=== PATIENT | male | born 1975 | race Caucasian/White ===

== ENCOUNTER 2016-06-10 10:58 | Emergency (ER) | payer OTHER ==
[2016-06-10 12:04] VITALS: BP 114/75
--- NOTE | 2016-06-10 12:47 | UC ---
UC General HPI - HPI Summary HPI Summary: [place] dizzyness, chest and sinus congestion. fatique, chills for 4 days - History of Current Complaint Chief Complaint: UCRespiratory Stated Complaint: COLD SYMPTOMS Time Seen by Provider: 06/10/16 12:36 Hx Obtained From: Patient Onset/Duration: Sudden Onset, Lasting Days Timing: Constant Onset Severity: Severe Current Severity: Severe Pain Intensity: 8 Associated Signs & Symptoms: Positive: Cough, Dizziness, Headache, SOB, Wheezing - Allergy/Home Medications Allergies/Adverse Reactions: Allergies Allergy/AdvReac Type Severity Reaction Status Date / Time No Known Allergies Allergy Verified 06/10/16 11:56 Home Medications: Home Medications Multiple Vitamins W/ Minerals [Airborne] PRN 06/10/16 [History] Eatvsftoshuuf-[id number]-[id number] [Theraflu Cold & Cough] 1 arsh PO PRN 06/10/16 [ History] PMH/Surg Hx/FS Hx/Imm Hx Previously Healthy: Yes Endocrine History Of: Denies: Diabetes Cardiovascular History Of: Denies: Cardiac Disorders Respiratory History Of: Denies: Asthma - Surgical History Surgical History: Yes Surgery Procedure, Year, and Place: R KNEE ARTHROSCOPY. RECONSTRUCTION R KNEE. hernia repair - Family History Known Family History: Positive: Hypertension Negative: Cardiac Disease, Diabetes - Social History Alcohol Use: Rare Substance Use Type: None Smoking Status (MU): Never Smoked Tobacco Type: Smokeless Tobacco Amount Used/How Often: ONE CAN PER WEEK Length of Time of Smoking/Using Tobacco: 20 yrs - Immunization History Most Recent Influenza Vaccination: not this season Review of Systems Constitutional: Chills, Fatigue Skin: Negative Eyes: Negative ENT: Sore Throat, Ear Ache, Nasal Discharge Respiratory: Shortness Of Breath, Cough Cardiovascular: Negative Gastrointestinal: Negative Genitourinary: Negative Motor: Negative Neurovascular: Negative Musculoskeletal: Myalgia Neurological: Headache Psychological: Negative All Other Systems Reviewed And Are Negative: Yes Physical Exam Triage Information Reviewed: Yes Appearance: Well-Nourished, Ill-Appearing, Pain Distress Vital Signs: Initial Vital Signs Temp 98 F 06/10/16 11:59 Pulse 70 06/10/16 11:59 Resp 20 06/10/16 11:59 BP 114/75 06/10/16 11:59 Pulse Ox 98 06/10/16 11:59 Vital Signs Reviewed: Yes Eye Exam: Normal Eyes: Positive: Conjunctiva Clear ENT: Positive: Pharyngeal erythema, Nasal congestion, Nasal drainage, TM bulging , Muffled/hoarse voice Dental Exam: Normal Neck exam: Normal Neck: Positive: Supple, Nontender, No Lymphadenopathy Respiratory Exam: Normal Respiratory: Positive: Chest non-tender, Lungs clear, Normal breath sounds Cardiovascular Exam: Normal Cardiovascular: Positive: RRR, No Murmur, Pulses Normal Abdominal Exam: Normal Abdomen Description: Positive: Nontender, No Organomegaly, Soft Bowel Sounds: Positive: Present Musculoskeletal Exam: Normal Neurological Exam: Normal Psychological Exam: Normal Skin Exam: Normal Course/Dx - Course Course Of Treatment: history obtained, exam performed, meds reviewed. rapid flu obtained. - Differential Dx - Multi-Symptom Provider Diagnoses: sinusitis Discharge - Discharge Plan Condition: Stable Disposition: HOME Prescriptions: Amoxicillin/Clavulanate TAB* [Augmentin TAB 875*] 875 mg PO BID #20 tab predniSONE TAB* [Deltasone TAB*] 40 mg PO DAILY #10 tab Patient Education Materials: Sinusitis (GEN) Forms: *Work Release Referrals: Drew Choi MD [Primary Care Provider] - Additional Instructions: take the medication as prescribed. Increase your fluid intake Get plenty of rest ibuprofen and tylenol alone for pain and fever.
== END 2016-06-10 13:25 | disposition home or self-care (01) ==
LOC: UCCORT 10:58
DX: J32.9 Chronic sinusitis, unspecified (principal); F17.220 Nicotine dependence, chewing tobacco, uncomplicated
CPT/HCPCS: 87502; 99212; G0463

== ENCOUNTER 2016-10-28 10:19 | Emergency (ER) | payer OTHER ==
[2016-10-28 10:40] VITALS: BP 118/71
--- NOTE | 2016-10-28 10:57 | UC ---
Knee Pain HPI - HPI Summary HPI Summary: Pt presents with c/o of "chronic" right knee pain and "weakness'. Pt reports that he has had multiple injuries and surgical repairs ot right knee. Pt states that the right knee "feels painful daily and that it may give out at any time" - History of Current Complaint Chief Complaint: UCLowerExtremity Stated Complaint: RIGHT KNEE INJURY Time Seen by Provider: 10/28/16 10:32 Hx Obtained From: Patient Onset/Duration: Gradual Onset, Lasting Weeks Severity Initially: Mild Severity Currently: Mild Character: Dull, Aching Aggravating Factor(s): Movement, Weight Bearing, Prolonged Standing, Stairs Alleviating Factor(s): Rest, Position Associated Signs And Symptoms: Positive: Numbness - secondary form previous surgery Able to Bear Weight: Yes - Risk Factors Gout Risk Factor: Age ^ 40, Male - Allergies/Home Medications Allergies/Adverse Reactions: Allergies Allergy/AdvReac Type Severity Reaction Status Date / Time No Known Allergies Allergy Verified 10/28/16 10:30 PMH/Surg Hx/FS Hx/Imm Hx Previously Healthy: Yes - Surgical History Surgical History: Yes Surgery Procedure, Year, and Place: R KNEE ARTHROSCOPY. RECONSTRUCTION R KNEE. hernia repair - Family History Known Family History: Positive: Hypertension Negative: Cardiac Disease, Diabetes - Social History Alcohol Use: Rare Substance Use Type: None Smoking Status (MU): Current Some Day Smoker Type: Smokeless Tobacco Amount Used/How Often: ONE CAN PER WEEK Length of Time of Smoking/Using Tobacco: 20 yrs - Immunization History Most Recent Influenza Vaccination: not this season Review of Systems Constitutional: Negative Skin: Negative Eyes: Negative ENT: Negative Respiratory: Negative Cardiovascular: Negative Gastrointestinal: Negative Genitourinary: Negative Motor: Negative Neurovascular: Negative Musculoskeletal: Arthralgia Neurological: Negative Psychological: Negative All Other Systems Reviewed And Are Negative: Yes Physical Exam Triage Information Reviewed: Yes Appearance: Well-Appearing Vital Signs: Initial Vital Signs Temp 98 F 10/28/16 10:24 Pulse 64 10/28/16 10:24 Resp 16 10/28/16 10:24 BP 118/71 10/28/16 10:24 Pulse Ox 99 10/28/16 10:24 Eye Exam: Normal Neck exam: Normal Respiratory Exam: Normal Cardiovascular Exam: Normal Musculoskeletal Exam: Other Musculoskeletal: Positive: ROM Limited @, Other: - c/o pain with drawer and vlagus/varus test. Neurological Exam: Normal Psychological Exam: Normal Skin Exam: Normal Knee Pain Course/Dx - Differential Dx/Diagnosis Differential Diagnosis/HQI/PQRI: Internal Derangement Of Knee, Sprain, Strain, Tendonitis Provider Diagnoses: right knee pain Discharge - Discharge Plan Condition: Stable Disposition: HOME Patient Education Materials: Knee Pain (ED) Referrals: Drew Choi MD [Primary Care Provider] - Rosas Blue MD [Medical Doctor] - 1 Day (Appointment at 11 am.) Additional Instructions: Please follow up with Dr. Blue tomorrow, 10/29/16 at 11 am. If unable to make this appointment please reschedule at your convenience.
== END 2016-10-28 11:13 | disposition home or self-care (01) ==
LOC: UCCORT 10:19
DX: M25.561 Pain in right knee (principal); F17.220 Nicotine dependence, chewing tobacco, uncomplicated
CPT/HCPCS: 99211; G0463

== ENCOUNTER 2017-03-19 16:10 | Emergency (ER) | payer OTHER ==
[2017-03-19 16:18] VITALS: BP 114/75
--- NOTE | 2017-03-19 16:40 | UC ---
Skin Complaint HPI - HPI Summary HPI Summary: 42 yo male with tick bite noted this PM On a mx of 4 hours removed with forceps mild pain - History of Current Complaint Chief Complaint: UCSkin Time Seen by Provider: 03/19/17 16:22 Stated Complaint: TICK Hx Obtained From: Patient Onset/Duration: Sudden Onset Timing: Constant Onset Severity: Mild Current Severity: Mild Pain Intensity: 1 Pain Scale Used: 0-10 Numeric Location: Other - right neck Aggravating Factor(s): Nothing Alleviating Factor(s): Nothing Associated Signs & Symptoms: Positive: Negative Related History: Insect Bite/Sting - Allergy/Home Medications Allergies/Adverse Reactions: Allergies Allergy/AdvReac Type Severity Reaction Status Date / Time No Known Allergies Allergy Verified 03/19/17 16:18 Review of Systems Constitutional: Negative Skin: Negative Eyes: Negative ENT: Negative Respiratory: Negative Cardiovascular: Negative Gastrointestinal: Negative Genitourinary: Negative Motor: Negative Neurovascular: Negative Musculoskeletal: Negative Neurological: Negative Psychological: Negative Is Patient Immunocompromised?: No All Other Systems Reviewed And Are Negative: Yes PMH/Surg Hx/FS Hx/Imm Hx Previously Healthy: Yes - Surgical History Surgical History: Yes Surgery Procedure, Year, and Place: RT KNEE X 2,[facility]ERN[facility] - Family History Known Family History: Positive: Hypertension Negative: Cardiac Disease, Diabetes - Social History Alcohol Use: Rare Substance Use Type: None Smoking Status (MU): Never Smoked Tobacco Type: Smokeless Tobacco Amount Used/How Often: ONE CAN PER WEEK Length of Time of Smoking/Using Tobacco: 20 yrs - Immunization History Most Recent Influenza Vaccination: not this season Physical Exam Triage Information Reviewed: Yes Appearance: Well-Appearing, No Pain Distress, Well-Nourished Vital Signs: Initial Vital Signs Temp 97.6 F 03/19/17 16:14 Pulse 71 03/19/17 16:14 Resp 16 03/19/17 16:14 BP 114/75 03/19/17 16:14 Pulse Ox 97 03/19/17 16:14 Vital Signs Reviewed: Yes Eyes: Positive: Conjunctiva Clear ENT: Positive: Hearing grossly normal, TMs normal. Negative: Nasal congestion, Nasal drainage, Trismus, Muffled voice, Hoarse voice Neck: Positive: Supple, Nontender, No Lymphadenopathy Respiratory: Positive: Lungs clear, Normal breath sounds, No respiratory distress, No accessory muscle use Cardiovascular: Positive: RRR Musculoskeletal: Positive: ROM Intact, No Edema Neurological Exam: Normal Neurological: Positive: Alert Psychological Exam: Normal Skin Exam: Normal Course/Dx - Course Course Of Treatment: tick was brought in and is not engorged - Diagnoses Provider Diagnoses: tick bite Discharge - Discharge Plan Condition: Stable Disposition: HOME Patient Education Materials: Tick Bite (ED) Referrals: Drew Choi MD [Primary Care Provider] - If Needed
== END 2017-03-19 16:38 | disposition home or self-care (01) ==
LOC: UCCORT 16:10
DX: S10.96XA Insect bite of unspecified part of neck, initial encounter (principal); W57.XXXA Bitten or stung by nonvenomous insect and other nonvenomous arthropods, initial encounter; Y93.9 Activity, unspecified; Y92.9 Unspecified place or not applicable; F17.220 Nicotine dependence, chewing tobacco, uncomplicated
CPT/HCPCS: 99211; G0463

== ENCOUNTER 2017-10-09 08:54 | Emergency (ER) | payer OTHER ==
[2017-10-09 09:09] VITALS: BP 122/79
--- NOTE | 2017-10-09 09:54 | UC ---
Knee Pain HPI - HPI Summary HPI Summary: The patient is a 42-year-old male who yesterday developed severe right knee pain after his knee buckled . He has had surgeries on his right ACL. He is unable to fully extend his right knee. He is using and a hinged right knee immobilizer. 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 He states he will follow-up with his [place] physician Dr. Choi. - History of Current Complaint Chief Complaint: UCLowerExtremity Stated Complaint: RIGHT KNEE COMPLAINT Time Seen by Provider: 10/09/17 09:32 Hx Obtained From: Patient Onset/Duration: Sudden Onset, Lasting Hours Severity Initially: Moderate Severity Currently: Mild Pain Intensity: 4 Pain Scale Used: 0-10 Numeric Aggravating Factor(s): Movement, Weight Bearing, Prolonged Standing Alleviating Factor(s): Rest Able to Bear Weight: Yes Related History: Similar Episode/Dx as - hx torn ACL - Allergies/Home Medications Allergies/Adverse Reactions: Allergies Allergy/AdvReac Type Severity Reaction Status Date / Time No Known Allergies Allergy Verified 10/09/17 09:03 PMH/Surg Hx/FS Hx/Imm Hx Previously Healthy: Yes - Surgical History Surgical History: Yes Surgery Procedure, Year, and Place: RT KNEE X 2,[facility]ERNIA - Family History Known Family History: Positive: Hypertension Negative: Cardiac Disease, Diabetes - Social History Alcohol Use: Occasionally Substance Use Type: None Smoking Status (MU): Smoker, Current Status Unknown Type: Smokeless Tobacco Amount Used/How Often: ONE CAN PER WEEK Length of Time of Smoking/Using Tobacco: 20 yrs - Immunization History Most Recent Influenza Vaccination: not this season Review of Systems Constitutional: Negative Skin: Negative Eyes: Negative ENT: Negative Respiratory: Negative Cardiovascular: Negative Gastrointestinal: Negative Genitourinary: Negative Motor: Negative Neurovascular: Negative Musculoskeletal: Arthralgia Neurological: Negative Psychological: Negative Is Patient Immunocompromised?: No All Other Systems Reviewed And Are Negative: Yes Physical Exam Triage Information Reviewed: Yes Appearance: Well-Appearing, No Pain Distress, Well-Nourished Vital Signs: Initial Vital Signs Temp 98.3 F 10/09/17 09:04 Pulse 78 10/09/17 09:04 Resp 14 10/09/17 09:04 BP 122/79 10/09/17 09:04 Pulse Ox 98 10/09/17 09:04 Vital Signs Reviewed: Yes Eyes: Positive: Conjunctiva Clear ENT: Positive: Hearing grossly normal. Negative: Nasal congestion, Nasal drainage, Trismus, Muffled voice, Hoarse voice Neck: Positive: Supple, Nontender Respiratory: Positive: Lungs clear, No respiratory distress Cardiovascular Exam: Normal Cardiovascular: Positive: RRR, No Murmur Musculoskeletal: Positive: ROM Limited @ - right knee, unable to fully extend/ tender medial joint line Neurological: Positive: Alert Psychological Exam: Normal Skin Exam: Normal Knee Pain Course/Dx - Differential Dx/Diagnosis Provider Diagnoses: right knee injury. query right medial meniscus tear Discharge - Sign-Out/Discharge Documenting (check all that apply): Discharge/Admit/Transfer - Discharge Plan Condition: Stable Disposition: HOME Patient Education Materials: Knee Pain (ED) Forms: *Work Release Referrals: Drew Choi MD [Primary Care Provider] - As Soon As Possible Additional Instructions: I may concerned you may have a torn medial meniscus wear your hinged knee brace crutches ice twice daily - Billing Disposition and Condition Condition: STABLE Disposition: Home
== END 2017-10-09 09:54 | disposition home or self-care (01) ==
LOC: UCCORT 08:54
DX: S89.91XA Unspecified injury of right lower leg, initial encounter (principal); X58.XXXA Exposure to other specified factors, initial encounter; Y93.9 Activity, unspecified; Y92.9 Unspecified place or not applicable; Y99.1 Military activity; F17.220 Nicotine dependence, chewing tobacco, uncomplicated
CPT/HCPCS: 99212; G0463

== ENCOUNTER 2018-10-11 10:52 | Emergency (ER) | payer OTHER | END 2018-10-11 11:34 | disposition left against medical advice (07) | LOC: UCCORT 10:52 | DX: M25.561 Pain in right knee (principal); Z53.21 Procedure and treatment not carried out due to patient leaving prior to being seen by health care provider ==